=== PATIENT | male | born 1960 | race Caucasian/White ===

== ENCOUNTER 2023-06-11 01:02 | Day surgery (SDC) | payer OTHER, SELFPAY ==
[2023-06-04 11:00] VITALS: BMI 25.5
--- NOTE | 2023-06-04 11:04 | PC.NURSE ---
Report to the Outpatient Waiting Room, entrance under the green pavilion located off [facility], at time 1130 on date 06/11/23. Planned Procedure Time: 1330. Time changes happen often and if your time is changed the preop area will call you the afternoon before. - You and your visitor will be asked to self-screen and do not enter if you have any COVID symptoms. - A mask is optional within the hospital at this time. Patients may have clear liquids (water, carbonated beverages, clear teas, apple juice) until 3 hours prior to surgery with a maximum of 20 ounces. - No food from midnight until time of surgery Take the following medications with a SIP of water the morning of surgery: N/A DO NOT STOP ANY OF YOUR OTHER PRESCRIPTION MEDICATIONS PRIOR TO SURGERY ?EXCEPT THE FOLLOWING Medications to discontinue per physician: N/A Date to take last dose: N/A Please no make-up, nail macedonian, hairspray, perfume, deodorant, or body powder the day of surgery. No jewelry (including any body piercings) or valuables the day of surgery, leave them at home. Please take a shower or bath the night before, or the morning of, surgery with an antibacterial soap. Wear comfortable, loose fitting clothing. - Jewelry must be removed prior to entering the operating room. Rings and piercings that are not removed may be cut off. - The hospital will not accept responsibility for valuables. - Please leave all valuables, including medications, at home the day of surgery. If you are going home after surgery, a licensed route delivery driver must drive you home. - NO public transportation without another adult if you receive anesthesia. - We recommend that an adult stay with you for 24 hours following discharge. - We also recommend that you do not drive, make important decision, drink alcoholic beverages, or take any drugs that were not prescribed by your health care provider for at least 24 hours after your discharge time. Follow any additional instructions given to you from your surgeon. If you or anyone in your household have experienced Covid symptoms in the past week, please notify your surgeon or the nurse liaison at the phone number below for possible testing. Telephone instructions given to PT - YAHAIRA SAINI and asked if any additional questions and then verbalized understanding. Patient advised to call surgeon office or pre surgery nurse liaison [phone] if any additional questions.
--- NOTE | 2023-06-11 12:34 | WPDANESEPPF ---
Anes - Initial Pre Proc Eval Procedure: Operation Date: 06/11/23 13:30 Proposed Procedures p Excision of Left Upper Back Subcutaneous Mass - Rashawn Birch MD Date/Time: 06/11/23 12:34 Surgeon: Rashawn Birch MD Pre Op Diagnosis: Left Upper Back Mass 10 by 8cm Patient Data Age: 62 Gender: M Height: 1.7 m Weight: 74 kg Allergies Allergy/AdvReac Type Severity Reaction Status Date / Time No Known Allergies Allergy Unknown Verified 06/04/23 11:00 Home Medications Medication Instructions Recorded Confirmed Type No Home Medications 05/14/23 06/04/23 History Patient hx anesthesia problems: none Family hx anesthesia problems: none Results Review: All pre-operative results and documents have been reviewed as part of the pre-operative evaluation. [facility] Surgical History Surgical History H/O hand surgery 1977 Family History Family History Sibling Diabetes mellitus Hypertension Father Bladder cancer Lung cancer Other Heart disease Social History Social History Smoking status: Never smoker Alcohol intake: current Drinks per week: 10 Alcohol use details: 1-2 per day Substance use: never Substance use type: does not use Lack of Transportation: No Lack of Food: Never True Current Housing: I Have Housing Concerned About Future Housing: No Difficulty Paying Gas/Electric Bills: No Difficulty Paying for Meds: No Currently Unemployed: No Education: Bachelor's Degree Difficulty w/ Childcare or Family Care: No Living arrangements: alone Spiritual care concerns: No Anes - Eval Final PreProcedure Day of Procedure 06/11/23 12:34 Patient weight: normal Heart: regular rate and rhythm Lungs: clear to auscultation Airway: Mallampati scale class II Neurological: alert and oriented Last oral intake: >/= 8 hours ASA classification: I Emergent: no Anesthetic plan: proceed Anesthesia type and monitoring: general GIVS and standard monitoring Results Review: All pre-operative results and documents have been reviewed as part of the pre-operative evaluation. Informed Consent: The patient's anesthetic plan and its attendant risks and benefits were discussed with the patient/family/POA. Questions were solicited and answers provided to the satisfaction of the patient/family/POA.
[2023-06-11 12:40] VITALS: BP 145/84; PULSE 65; RESP 14; TEMP 36.1; O2SAT 99
--- NOTE | 2023-06-11 13:00 | WPDHPUPDATE1 ---
History and Physical Update Update Date/Time: 06/11/23 13:00 History and Physical has been reviewed, including an updated exam of the patient. There are NO changes in the patient's condition. Risks, benefits, and alternatives have been discussed and questions answered. Patient agrees to proceed with procedure.
[2023-06-11] MEDS: ceFAZolin 2 GM/D5W 50 ML 2 GM/50 ML BAG IVPB (13:09)
[2023-06-11] MEDS: BUPivacaine HCL 0.5% PF 30 ML VIAL 20 ML INFILTRATE (13:25)
[2023-06-11] MEDS: LIDO 1%/EPINEPHRINE 1:100,000 20 ML VIAL INFILTRATE (13:25)
[2023-06-11] MEDS: LACTATED RINGERS 1,000 ML 30 ML IV CONT (13:46)
[2023-06-11 14:02] VITALS: BP 130/78; PULSE 72; RESP 14; O2SAT 98
--- NOTE | 2023-06-11 14:06 | P.OP_ITS ---
Procedure Note - Detailed Date of Procedure 06/11/23 Pre-op Diagnosis Left Upper Back Mass 10 by 8cm Post-op Diagnosis Other (Left upper back intramuscular lipoma) Procedure Performed Excision of left upper back intramuscular lipoma Surgeon Rashawn Birch MD [employer] Baron SHAIKH Anesthesia MAC Indications Patient is a 62-year-old gentleman who presented with a slowly enlarging subcutaneous mass of left upper back region over the tip of the scapula. He presents now for excision of the mass tissue was enlargement and symptoms of soreness. Findings [id number] well-circumscribed fatty mass intramuscular underneath the left trapezius muscle. Description of Procedure After informed consent was obtained patient brought to the operating room was placed prone on operating table and then IV sedation was administered by anesthesia. The area the left upper back region was then prepped and draped in usual sterile fashion. A time-out was then performed correctly identifying the patient as well as procedure to be performed and verified he was given some perioperative IV antibiotics. 1% lidocaine mixed with 0.5% Marcaine was then injected around the mass for local anesthetic effect. I then made an oblique incision directly over the midportion of the mass with a scalpel and dissected down through the dermis of the skin with a scalpel. I then dissected down through the subcutaneous tissues and encountered the fascia to the trapezius muscle. The mass was densely deep to the muscle fibers and so then I incise the fascia along the direction of the muscle fibers and then split the muscle fibers utilizing [employer] retractors and blunt dissection. Minimal muscle tissue was divided with electrocautery. Once I split down through the to be easiest muscle I then found the well-circumscribed fatty appearing mass with a well-defined capsule. I then proceeded to dissect this out from the surrounding muscle tissue utilizing electrocautery. Once the mass was completely free from the surrounding muscle tissue I then measured in it was 9cm in length by 6cm width by 2cm in depth. It was sent to pathology for examination. Hemostasis in the wound was then is utilized electrocautery. I then irrigated out with sterile saline solution. I then closed the trapezius muscle and fascia utilizing interrupted 2-0 Vicryl sutures. This was then followed by layer interrupted 3-0 Vicryl sutures in the subcutaneous tissues. The skin edges were then approximated utilizing a running subcuticular 4-0 Monocryl suture. The incision was then cleaned the skin glue was applied. The patient tolerated the procedure well no complications. All sponges, needles, and instrument counts were correct at the end procedure. EBL was _5__cc. The patient was awakened and taken to recovery in stable and satisfactory condition. Implants None Estimated Blood Loss 5 Drains No Packing No Pathology Yes (Lipomatous mass to pathology) Complications No immediate complications Condition Stable Disposition PACU [facility] Billing Surgery - Charge Forward: Surgery Billing
[2023-06-11 14:30] VITALS: BP 142/77; PULSE 55
[2023-06-11 15:00] VITALS: BP 158/77; PULSE 49
== END 2023-06-11 15:08 | disposition home or self-care (01) ==
PROVIDERS: PCP Internal Medicine; Visit Provider Surgery
PROC: (CPT 21933; principal; 2023-06-11 13:30)
DX: D17.1 Benign lipomatous neoplasm of skin and subcutaneous tissue of trunk (principal)
CPT/HCPCS: 21933; 88304; J0690; J2704; J3010; J7120

== ENCOUNTER 2024-04-17 14:55 | Emergency (ER) | payer OTHER, SELFPAY ==
--- NOTE | 2024-04-17 14:58 | ED.EYEPROB ---
HPI - Eye Problem General Chief complaint: Eye Problems Stated complaint: EYE REDNESS Time Seen by Provider: 04/17/24 15:01 Source: patient, RN notes reviewed and old records reviewed Mode of arrival: ambulatory Limitations: no limitations History of Present Illness HPI Narrative: 63-year-old male to [facility] for complaint of bilateral eye redness, irritation, discharge that began upon wakening this morning. Patient denies allergies, exposure to any new potential irritant, cough, pertinent medical history, visual changes, recent illness. Patient endorses wearing contacts that he changes every 30 days, patient endorses wearing current pair for approximately 2 weeks. Respirations even and nonlabored. Patient hypertensive in triage. Patient in no acute distress. Related Data Allergies Allergy/AdvReac Type Severity Reaction Status Date / Time No Known Allergies Allergy Unknown Verified 04/16/24 11:27 Review of Systems Review of Systems: All systems reviewed & are unremarkable except as noted in HPI and below Constitutional: Constitutional: Reports no additional constitutional complaints Eyes: Eyes: Reports as per HPI, Denies blurry vision, Denies change in vision, Denies diplopia, Reports eye discharge, Reports irritation, Denies loss of vision and Denies other visual disturbances ENT: Reports system reviewed and no additional complaints, except as documented Cardiovascular: Cardiovascular: Reports no additional cardiovascular complaints, Denies chest pain and Denies dyspnea Respiratory: Respiratory: Reports no additional respiratory complaints, Denies cough and Denies dyspnea Musculoskeletal: Musculoskeletal: Reports no additional musculoskeletal complaints Neurologic: Reports system reviewed and no additional complaints, except as documented Psychiatric: Psychiatric: Reports no additional psychiatric complaints [facility] Surgical History Surgical History H/O hand surgery 1977 History of excision of mass Excision of left upper back intramuscular lipoma on 06/11/25 SAW Family History Family History Sibling Diabetes mellitus Hypertension Father Bladder cancer Lung cancer Other Heart disease Social History Social History Social History: Caffeine-coffee,decaf Smoking status: Never smoker Alcohol intake: current Drinks per week: 10 Alcohol use details: 1-3 per day Substance use: never Substance use type: does not use Do You Feel Safe in your Home?: Yes Lack of Transportation: No Lack of Food: Never True Current Housing: I Have Housing Concerned About Future Housing: No Difficulty Paying Gas/Electric Bills: No Difficulty Paying for Meds: No Currently Unemployed: No Education: Bachelor's Degree Difficulty w/ Childcare or Family Care: No Living arrangements: alone Spiritual care concerns: No Comments At the time of my signature, I reviewed and agree with the nursing past medical, surgical, social, and family history. There is no relevant family history pertinent to the patient complaint. Exam Const: General: cooperative, healthy appearing, no acute distress, alert, uncomfortable and well nourished Nutritional Appearance: well nourished Orientation/consciousness: patient oriented x3 Limitations: no limitations HENMT: Head: normal to inspection Ears: external ears normal Face/Nose/Sinus: Normal external nose present, Normal nares present, normal facial exam, No erythema and No edema Face and sinus: normal facial exam, no erythema and no edema Mouth: Yes Normal oral and palatal mucosa present Eyes: Visual Veloz: normal visual veloz by confrontation Alignment and Position: alignment normal and position normal Periorbital: periorbital findings normal Eyelids: eyelids normal Conjun
[2024-04-17 15:05] VITALS: BP 157/83; PULSE 62; RESP 16; TEMP 36.6; O2SAT 100
== END 2024-04-17 15:23 | disposition home or self-care (01) ==
PROVIDERS: Emergency Provider Nurse Practitioner Family; PCP Internal Medicine
DX: H10.9 Unspecified conjunctivitis (principal)
CPT/HCPCS: 99213; G0463